=== PATIENT | female | born 1965 | race African-American/Black ===

== ENCOUNTER 2021-07-01 10:08 | Inpatient (IN) | payer MEDICAID ==
[~2021-07-01] VITALS: Ht 170.2 cm; Wt 159.2 kg
[~2021-07-01 10:08] MED LIST: LANTUSUD SUBCUT; LEVO750T46 MT; MIDO5TAB4 PO
[2021-07-01 11:02] LABS: BASOPHILS % 0.7 % (0.0-2.0); HEMOGLOBIN. 12.7 g/dL (12.0-16.0); LYMPHOCYTES % 22.6 % (20.0-50.0); MEAN CORPUSCULAR HEMOGLOBIN 29.7 pg (28.0-32.0); MEAN CORPUSCULAR VOLUME 90.8 fL (81.0-99.0); MEAN PLATELET VOLUME 7.9 fl (7.4-10.4); MONOCYTES % 8.3 % (2.0-8.0); NEUTROPHILS % 66.4 % (40.0-76.0); PLATELET 267 x1000/uL (130-400); RED BLOOD CELL COUNT 4.29 mill/uL (4.2-5.4); RED CELL DISTRIBUTION WIDTH 17.5 % (11.6-14.6)
[2021-07-01 11:25] LABS: CHLORIDE 108 mEq/L (98-107)
[2021-07-01] MEDS ORDERED: FUROSEMIDE 40MG/4ML VIAL IVP ONE (11:45)
[2021-07-01] MEDS ORDERED: ENOXAPARIN 40MG/0.4ML SYR SUBCUT ONE (13:45)
[2021-07-01] MEDS ORDERED: DOCUSATE SODIUM 100MG CAPSULE PO PRN (14:30)
[2021-07-01] MEDS ORDERED: MAGNESIUM/ALUMINUM HYDROXIDE/SIMETHICONE 30ML UDC PO PRN (14:30)
[2021-07-01] MEDS ORDERED: CLONIDINE 0.1MG TABLET PO PRN (14:30)
[2021-07-01] MEDS ORDERED: NITROGLYCERIN 0.4MG TABLET SL SL PRN (14:30)
[2021-07-01] MEDS ORDERED: GUAIFENESIN 200MG/10ML SUGAR FREE UDC PO PRN (14:30)
[2021-07-01] MEDS ORDERED: IPRATROPIUM/ALBUTEROL 0.5-3(2.5)MG/3ML NEB NEB PRN (14:30)
[2021-07-01] MEDS ORDERED: ONDANSETRON HCL 4MG/2ML INJ IV PRN (14:30)
[2021-07-01] MEDS ORDERED: ACETAMINOPHEN 325MG TABLET PO PRN (14:30)
[2021-07-01 14:36] LABS: ETHANOL BLOOD < 10 mg/dL
[2021-07-01 14:38] LABS: TOTAL IRON BINDING CAPACITY 238 ug/dL (250-450)
[2021-07-01 14:39] LABS: LDL CHOLESTEROL 71 mg/dL (5-100)
[2021-07-01 14:40] LABS: HDL CHOLESTEROL 38 mg/dL (40-59)
[2021-07-01 15:33] LABS: FOLIC ACID (FOLATE) SERUM 5.6 ng/mL (>5.38)
[2021-07-01 15:55] LABS: INR 1.2; PROTHROMBIN TIME 12.8 sec (9.6-11.0)
[2021-07-01] MEDS ORDERED: ENOXAPARIN 80MG/0.8ML SYR SUBCUT NR (16:30)
[2021-07-01] MEDS: CARVEDILOL 3.125 MG TABLET PO SCH (18:00)
[2021-07-01] MEDS: INSULIN LISPRO 100 UNITS/ML SUBCUT SCH (21:00)
[2021-07-01] MEDS ORDERED: DEXTROSE 50% WATER 50ML SYRINGE IV PRN (21:00)
[2021-07-01] MEDS: BLOOD SUGAR DIAGNOSTIC STRIP TEST SCH (21:00)
[2021-07-01] MEDS ORDERED: FUROSEMIDE 40MG/4ML VIAL IVP SCH (21:00)
[2021-07-01 23:00] VITALS: BP 133/82
[2021-07-01] MEDS: FAMOTIDINE 20MG TABLET PO SCH (23:56)
[2021-07-02 00:01] VITALS: BP 121/74
[2021-07-02 00:09] LABS: CREATINE KINASE 34 IU/L (26-192)
[2021-07-02 00:10] LABS: CREATINE KINASE MB FRACTION < 1.0 ng/mL (0.5-3.6)
[2021-07-02] MEDS: ACETAMINOPHEN 325MG TABLET PO PRN ×3 (01:03→20:14)
[2021-07-02] MEDS ORDERED: ACET-2502 PO (03:13)
[2021-07-02] MEDS: ENOXAPARIN 120MG/0.8ML SYR SUBCUT SCH ×2 (05:30→19:06)
[2021-07-02] MEDS: FUROSEMIDE 40MG/4ML VIAL IVP SCH ×3 (05:30→20:10)
[2021-07-02] MEDS: CARVEDILOL 3.125 MG TABLET PO SCH ×2 (05:31→19:03)
[2021-07-02 07:34] LABS: BASOPHILS % 0.7 % (0.0-2.0); EOSINOPHILS % 4.7 % (0.0-5.0); HEMATOCRIT. 35.3 % (36.0-48.0); HEMOGLOBIN. 11.5 g/dL (12.0-16.0); LYMPHOCYTES % 27.5 % (20.0-50.0); MEAN CORPUSCULAR HEMOGLOBIN 29.7 pg (28.0-32.0); MEAN PLATELET VOLUME 9.4 fl (7.4-10.4); MONOCYTES % 10.3 % (2.0-8.0); NEUTROPHILS % 56.8 % (40.0-76.0); PLATELET 245 x1000/uL (130-400); RED BLOOD CELL COUNT 3.88 mill/uL (4.2-5.4)
[2021-07-02] MEDS: INSULIN LISPRO 100 UNITS/ML SUBCUT SCH ×4 (07:34→21:00)
[2021-07-02] MEDS: BLOOD SUGAR DIAGNOSTIC STRIP TEST SCH ×4 (07:34→21:00)
[2021-07-02 07:42] LABS: CHLORIDE 108 mEq/L (98-107)
[2021-07-02 07:48] LABS: PHOSPHORUS 3.7 mg/dL (2.5-4.9)
[2021-07-02 08:00] VITALS: BP 131/80
[2021-07-02] MEDS: ASPIRIN 325MG EC TABLET PO SCH (11:55)
[2021-07-02] MEDS: FAMOTIDINE 20MG TABLET PO SCH ×2 (11:55→21:31)
[2021-07-02 12:00] VITALS: BP 135/82
[2021-07-02 16:00] VITALS: BP 128/75
[2021-07-02 20:00] VITALS: BP 100/61
[2021-07-03] VITALS: BP 115/71
[2021-07-03 04:00] VITALS: BP 120/67
[2021-07-03] MEDS: ACETAMINOPHEN 325MG TABLET PO PRN ×3 (06:07→22:13)
[2021-07-03] MEDS: CARVEDILOL 3.125 MG TABLET PO SCH ×2 (06:07→17:36)
[2021-07-03] MEDS: ENOXAPARIN 120MG/0.8ML SYR SUBCUT SCH (06:08)
[2021-07-03] MEDS: INSULIN LISPRO 100 UNITS/ML SUBCUT SCH ×4 (07:40→20:54)
[2021-07-03 08:00] VITALS: BP 113/73
[2021-07-03] MEDS: BLOOD SUGAR DIAGNOSTIC STRIP TEST SCH ×4 (08:03→20:54)
[2021-07-03] MEDS: FAMOTIDINE 20MG TABLET PO SCH ×2 (08:51→22:13)
[2021-07-03] MEDS: FUROSEMIDE 40MG/4ML VIAL IVP SCH ×2 (08:51→20:26)
[2021-07-03] MEDS: ASPIRIN 325MG EC TABLET PO SCH (08:51)
[2021-07-03 12:00] VITALS: BP 99/56
[2021-07-03 16:00] VITALS: BP 102/57
[2021-07-03] MEDS: ENOXAPARIN 150MG/ML SYR SUBCUT SCH (18:27)
[2021-07-03 20:00] VITALS: BP 113/64
[2021-07-03] MEDS: ZOLPIDEM TARTRATE 5MG TABLET PO PRN (22:13)
[2021-07-04] VITALS: BP 111/63
[2021-07-04 04:00] VITALS: BP 102/53
[2021-07-04] MEDS: BLOOD SUGAR DIAGNOSTIC STRIP TEST SCH (05:20)
[2021-07-04] MEDS: CARVEDILOL 3.125 MG TABLET PO SCH ×2 (05:20→17:18)
[2021-07-04] MEDS: ENOXAPARIN 150MG/ML SYR SUBCUT SCH ×2 (05:45→17:07)
[2021-07-04] MEDS: INSULIN LISPRO 100 UNITS/ML SUBCUT SCH (05:49)
[2021-07-04 08:00] VITALS: BP 112/63
[2021-07-04] MEDS: ASPIRIN 325MG EC TABLET PO SCH (09:00)
[2021-07-04] MEDS: FAMOTIDINE 20MG TABLET PO SCH ×2 (09:31→21:54)
[2021-07-04] MEDS: FUROSEMIDE 40MG/4ML VIAL IVP SCH ×2 (09:31→21:54)
[2021-07-04] MEDS: ACETAMINOPHEN 325MG TABLET PO PRN ×3 (09:32→22:28)
[2021-07-04 12:00] VITALS: BP 107/60
[2021-07-04 16:00] VITALS: BP 116/75
[2021-07-04 20:00] VITALS: BP 116/72
[2021-07-04] MEDS: ZOLPIDEM TARTRATE 5MG TABLET PO PRN (22:27)
[2021-07-05] VITALS: BP 143/75
[2021-07-05 04:00] VITALS: BP 108/64
[2021-07-05] MEDS: ENOXAPARIN 150MG/ML SYR SUBCUT SCH (05:26)
[2021-07-05] MEDS: CARVEDILOL 3.125 MG TABLET PO SCH (05:27)
[2021-07-05 08:00] VITALS: BP 106/66
[2021-07-05] MEDS: ASPIRIN 325MG EC TABLET PO SCH (08:11)
[2021-07-05] MEDS: FUROSEMIDE 40MG/4ML VIAL IVP SCH (08:11)
[2021-07-05] MEDS: FAMOTIDINE 20MG TABLET PO SCH (08:11)
[2021-07-05] MEDS: ACETAMINOPHEN 325MG TABLET PO PRN (08:19)
[2021-07-05] MEDS ORDERED: SPIR25TA MT (10:44)
[2021-07-05] MEDS ORDERED: FAMO20TA8 PO (10:44)
[2021-07-05] MEDS ORDERED: RIVA20TA MT (10:44)
[2021-07-05] MEDS ORDERED: FURO-151 MT (10:44)
[2021-07-05] MEDS ORDERED: ASPI-867 PO (10:44)
[2021-07-05] MEDS ORDERED: COR3 PO (10:44)
[2021-07-05] MEDS ORDERED: LOSA25TA3 MT (10:44)
[2021-07-05 10:45] VITALS: BP 106/66
[2021-07-05 12:00] VITALS: BP 113/72
[2021-07-05 16:00] VITALS: BP 99/57
== END 2021-07-05 16:03 | disposition home or self-care (01) | DRG 194 ==
LOC: ER 10:08 → 8WST 12:57 → ENRESERV 21:14
PROVIDERS: ADMIT Internal Medicine; ATTEND Internal Medicine
DX: I11.0 Hypertensive heart disease with heart failure (principal); E44.0 Moderate protein-calorie malnutrition; K76.0 Fatty (change of) liver, not elsewhere classified; K76.1 Chronic passive congestion of liver; Z68.43 Body mass index [BMI] 50.0-59.9, adult; E83.51 Hypocalcemia; I50.43 Acute on chronic combined systolic (congestive) and diastolic (congestive) heart failure; E11.9 Type 2 diabetes mellitus without complications; E66.01 Morbid (severe) obesity due to excess calories; Z20.822 Contact with and (suspected) exposure to COVID-19; E87.5 Hyperkalemia; Z91.14 Patient's other noncompliance with medication regimen; Z79.4 Long term (current) use of insulin; Z88.1 Allergy status to other antibiotic agents; Z88.8 Allergy status to other drugs, medicaments and biological substances; Z79.2 Long term (current) use of antibiotics; Z79.899 Other long term (current) drug therapy; Z71.3 Dietary counseling and surveillance
CPT/HCPCS: 36415; 71045; 71275; 80053; 80061; 80320; 82550; 82553; 82607; 82746; 82962; 83036; 83540; 83550; 83735; 83880; 84100; 84439; 84443; 84484; 85025; 87426; 93005; 93306; 93970; 97161; 97166; 97535; 99285; J1650; J1940; J2405; G0480